=== PATIENT | male | born 1955 | race Caucasian/White ===

== ENCOUNTER 2018-12-13 06:55 | Day surgery (SDC) | payer MEDICARE ==
[2018-12-10 18:13] VITALS: BMI 35.3
[~2018-12-13 06:55] MED LIST: LACTATED RINGERS 1,000 ML IV SCH
[2018-12-13 07:27] VITALS: RESP 16; TEMP 98.4
[2018-12-13 07:29] LABS: Glucose,Whole Blood 137 mg/dL (75-99)
[2018-12-13] MEDS ORDERED: PROPOFOL 10 MG/ML 20 ML VIAL IV ONE (07:40)
[2018-12-13] MEDS ORDERED: ePHEDrine SULFATE/0.9% NACL/PF 50 MG/5 ML SYRINGE IV ONE (07:40)
[2018-12-13] MEDS ORDERED: fentaNYL (PF) 50 MCG/ML 2 ML AMP ONE (07:40)
[2018-12-13] MEDS ORDERED: LIDOCAINE 1% INJ 10MG/ML (20 ML MDV) ONE (07:40)
--- NOTE | 2018-12-13 08:41 | P.PCN ---
Date of Procedure: 12/13/18 Description of Procedure: Brief history: Patient is a pleasant 63-year-old male presents for outpatient EGD and colonoscopy. The patient reports a history of reflux disease for which he takes ranitidine therapy. Reports breakthrough therapies even on the H2 antagonist. He also reports a prior history of colonoscopy 15 years ago. He reports that this was significant only for diverticulosis. No hematochezia or melena reported. No family history of colon cancer. Procedure performed: Esophagogastroduodenoscopy with biopsy Colonoscopy with cold snare polypectomy Estimated blood loss: Minimal. Preoperative diagnosis: GERD, screening colonoscopy Anesthesia: [facility] [place] Procedure: After informed consent was obtained from the patient was brought into the endoscopy unit and IV sedation was administered by anesthesia under continuous monitoring. Initially upper endoscopy was done. The Olympus GF 190 video endoscope was inserted inserted into the mouth and esophagus intubated without any difficulty and was gradually advanced into the stomach and duodenum and carefully examined. The bulb and second part of the duodenum appeared were significant for mild scattered erythema consistent with duodenitis which was biopsied. The scope was then withdrawn into the stomach adequately insufflated with air and upon careful examination the antrum and body, cardia and fundus appeared grossly normal, however erythema and superficial erosions in the antrum and body were seen consistent with moderate gastritis with biopsies taken. The scope was then withdrawn into the esophagus. A small hiatal hernia was noted.The GE junction was located at 37 cm to the incisors. GE junction appeared somewhat irregular suggestive of possible Leiva's esophagus with biopsies taken. Rest of the esophagus appeared normal. Patient tolerated the procedure well. At this time the patient continued to remain sedation. Initial digital rectal examination was normal. Olympus CF 190 video colonoscope was then inserted into the rectum and gradually advanced to the cecum without any difficulty. Careful examination was performed as the scope was gradually being withdrawn. The prep was fair with a large amount of liquid stool with some solid components seen throughout the entire colon. Suctioning was performed to remove liquid component. The cecum, ascending colon, transverse colon, descending colon, sigmoid colon and rectum appeared normal. A flat 11 mm polyp was found in the transverse colon and removed with cold snare in piecemeal fashion. Moderate diverticulosis of the sigmoid and descending colon. Retroflexion was performed in the rectum and no lesions were noted, mild internal hemorrhoids noted . Patient tolerated the procedure well. Impression: 1. Duodenitis, biopsied. Moderate of the antrum and body, biopsied. Irregular GE junction, biopsied. 2. Transverse colon polypectomy, piecemeal resection. Moderate diverticulosis. Mild internal hemorrhoids. Recommendations: Findings of this examination were discussed with the patient. Okay for a high- fiber diet. Await pathology from biopsies. Would recommend follow-up in the GI clinic in the next 1-2 weeks. We'll discuss up titration of medical regimen with possible addition of PPI and follow-up. Repeat colonoscopy in 1 year due to fair prep in piecemeal resection of polyp.
[2018-12-13 09:18] VITALS: BP 120/73; PULSE 62
== END 2018-12-13 09:51 | disposition home or self-care (01) ==
LOC: ORWHC2ENDO 06:55
PROVIDERS: ATTEND Internal Medicine
DX: K21.0 Gastro-esophageal reflux disease with esophagitis (principal); Z12.11 Encounter for screening for malignant neoplasm of colon; K29.50 Unspecified chronic gastritis without bleeding; K29.80 Duodenitis without bleeding; K44.9 Diaphragmatic hernia without obstruction or gangrene; K57.90 Diverticulosis of intestine, part unspecified, without perforation or abscess without bleeding; D12.3 Benign neoplasm of transverse colon; K64.8 Other hemorrhoids; Z88.0 Allergy status to penicillin; Z79.1 Long term (current) use of non-steroidal anti-inflammatories (NSAID); Z79.899 Other long term (current) drug therapy; I10 Essential (primary) hypertension; E11.9 Type 2 diabetes mellitus without complications; E66.9 Obesity, unspecified; Z68.35 Body mass index [BMI] 35.0-35.9, adult; Z79.84 Long term (current) use of oral hypoglycemic drugs
CPT/HCPCS: 43239; 45385; 88305

== ENCOUNTER → 2020-02-19 | Outpatient (CLI) | payer MEDICARE | END | disposition home or self-care (01) | LOC: LABWHC1 09:32 | PROVIDERS: ATTEND Internal Medicine | DX: D89.9 Disorder involving the immune mechanism, unspecified (principal); L40.50 Arthropathic psoriasis, unspecified; M15.9 Polyosteoarthritis, unspecified | CPT/HCPCS: 36415; 86480 ==

== ENCOUNTER 2021-03-02 06:50 | Day surgery (SDC) | payer MEDICARE ==
[2021-02-26 18:08] VITALS: BMI 34.4
[~2021-03-02 06:50] MED LIST changes: +LIDOCAINE 1% (10MG/ML) FOR IV START INTRADERMA PRN
[2021-03-02 07:13] VITALS: TEMP 97.8
[2021-03-02] MEDS ORDERED: LACTATED RINGERS 1,000 ML IV ONE (07:14)
[2021-03-02 07:21] LABS: Glucose,Whole Blood 83 mg/dL (75-99)
[2021-03-02] MEDS ORDERED: MIDAZOLAM 2 MG/2 ML VIAL ONE (07:50)
[2021-03-02] MEDS ORDERED: LIDOCAINE 1% INJ 10MG/ML (20 ML MDV) ONE (07:50)
[2021-03-02] MEDS ORDERED: PROPOFOL 10 MG/ML 20 ML VIAL IV ONE (07:50)
[2021-03-02] MEDS ORDERED: fentaNYL (PF) 50 MCG/ML 2 ML AMP ONE (07:50)
--- NOTE | 2021-03-02 08:21 | P.PCN ---
Date of Procedure: 03/02/21 Description of Procedure: Brief history: Patient is a 65-year-old male presenting for outpatient EGD and colonoscopy for evaluation of symptoms of GERD and a history of colon polyps. Patient denies any family history of colon cancer. Previously reporting only for reflux to controlled on omeprazole therapy. Last colonoscopy with inadequate prep in 2019 and polypectomy at that time. Procedure performed: Esophagogastroduodenoscopy with biopsy Colonoscopy Estimated blood loss: Minimal. Preoperative diagnosis: GERD, history of colon polyps, last colonoscopy 2018 with inadequate prep Anesthesia: MAC Procedure: After informed consent was obtained from the patient was brought into the endoscopy unit and IV sedation was administered by anesthesia under continuous monitoring. Initially upper endoscopy was done. The Olympus GF 190 video endoscope was inserted into the mouth and esophagus intubated without any difficulty and was gradually advanced into the stomach and duodenum and carefully examined. The bulb and second part of the duodenum appeared normal, with biopsies taken. The scope was then withdrawn into the stomach adequately insufflated with air and upon careful examination the antrum and body, cardia and fundus appeared normal, except for some mild scattered erythema in the antrum and body suggestive of mild gastritis biopsy taken. The scope was then withdrawn into the esophagus. The GE junction was located at 40 cm to the incisors. It appeared regular with no erythema erosions or ulcerations, and with lower esophageal biopsies taken. Rest of the esophagus appeared normal. Patient tolerated the procedure well. At this time the patient continued to remain sedation. Initial digital rectal examination was normal. Olympus CF 190 video colonoscope was then inserted into the rectum and gradually advanced to the cecum without any difficulty. Careful examination was performed as the scope was gradually being withdrawn. The prep was excellent. The cecum, ascending colon, transverse colon, descending colon, sigmoid colon and rectum appeared normal, with small and large mouth diverticula noted throughout the colon. Retroflexion was performed in the rectum and no lesions were noted., And moderate internal hemorrhoids were seen Patient tolerated the procedure well. Impression: 1. Mild gastritis. Biopsies of the duodenum, antrum and body and lower esophagus. 2. Mild pandiverticulosis. Internal hemorrhoids. Otherwise normal-appearing colon from rectum to cecum. Recommendations: Findings of this examination were discussed with the patient as well as his family. Okay to resume diet. Okay to resume medications. Await pathology from biopsies. Recommend repeat colonoscopy in 5 years for personal history of colon polyps.
[2021-03-02 08:32] VITALS: RESP 16
[2021-03-02 08:39] VITALS: BP 113/70; PULSE 57
== END 2021-03-02 09:11 | disposition home or self-care (01) ==
LOC: ORWHC2ENDO 06:50
PROVIDERS: ATTEND Internal Medicine
DX: Z12.11 Encounter for screening for malignant neoplasm of colon (principal); K29.50 Unspecified chronic gastritis without bleeding; K57.30 Diverticulosis of large intestine without perforation or abscess without bleeding; K21.00 Gastro-esophageal reflux disease with esophagitis, without bleeding; K64.8 Other hemorrhoids; E03.9 Hypothyroidism, unspecified; Z86.010 Personal history of colon polyps; Z98.890 Other specified postprocedural states; Z87.891 Personal history of nicotine dependence; Z79.890 Hormone replacement therapy; Z79.899 Other long term (current) drug therapy; Z88.0 Allergy status to penicillin
CPT/HCPCS: 88305; 43239; J2250; J2001; J3010; J2704; G0105; 45378

== ENCOUNTER → 2022-04-14 | Outpatient (CLI) | payer MEDICARE ==
--- NOTE | 2022-04-14 09:38 | MR ---
EXAMINATION TYPE: MR brain wo/w con DATE OF EXAM: 04/14/2022 COMPARISON: None HISTORY: DIZZINESS AND GIDDINESS TECHNIQUE: Multiplanar, multisequence images of the brain and brainstem is performed without and with IV contras t, utilizing 11 mL intravenous Gadavist . FINDINGS: Diffusion weighted images demonstrate no evidence of a recent infarct or other diffusion ab normality. There is mild to moderate generalized degenerative change with a slightly greater frontal lobe component. Periventricular and multiple focal areas of abnormal signal are seen within the whit e matter. Midline structures demonstrate normal morphology. The craniocervical junction appears within normal limits. Post contrast images demonstrate no abnormal enhancement. The dural venous sinuses appear pa tent. Changes of chronic sinusitis are noted and the globes are intact. Nasal septal deviation. IMPRESSION: 1. Degenerative and nonspecific white matter changes most mild or minimal white matter ischemia. 2. Mild chronic sinusitis.
== END | disposition home or self-care (01) ==
LOC: RADMRIMAIN 08:16
PROVIDERS: ATTEND Family Medicine
DX: R42 Dizziness and giddiness (principal)
CPT/HCPCS: 70553; A9585

== ENCOUNTER → 2022-10-12 | Outpatient (CLI) | payer MEDICARE ==
--- NOTE | 2022-10-12 14:52 | BD ---
EXAMINATION TYPE: Axial Bone Density DATE OF EXAM: 10/12/2022 COMPARISON: NONE CLINICAL HISTORY: 67 years year old Male. ICD-10 CODE: M47.819SPONDYLOSIS WITHOUT MYELOPATHY OR RADI CULO Height: 5 FT 11 IN Weight: 241 FRAX RISK QUESTIONS: Alcohol (3 or more units per day): NO Family History (Parent hip fracture): NO Glucocorticoids (More than 3mos): YES (Ex: prednisone, prednisolone, methylprednisolone, dexamethasone, and hydrocortisone). History of Fracture in Adulthood: NO Secondary Osteoporosis: 1. Type 1 Diabetes:TYPE 2 2. Hyperthyroidism: NO 3. 4. Malnutrition: NO 5. Chronic liver disease: NO Rheumatoid Arthritis: NO Current Tobacco Use: FORMER RISK FACTORS HISTORY OF: Surgery to Spine/Hip(right/left)/Wrist (right/left): NO Family History of Osteoporosis: NO Active: YES Diet low in dairy products/other sources of calcium: NO Lost more than 2 inches in height since high school: NO Frequent falls: NO Poor Health: GOOD Hyperparathyroidism: NO Adrenal Insufficiency: NO MEDICATIONS: Additional Medications: GABAPENTIN, METOPROLOL, SYNJARDY PROSTATE MEDS, TYLENOL, PM, METHTREXTE,INFUS ION EVERY EIGHT WEEKS FOR [place]CGOWAN TIC ARTHRITIS, Additional History: EXAM MEASUREMENTS: Bone mineral densitometry was performed using the [employer] System. Bone mineral density as measured about the Lumbar spine is: ----- L1-L4(G/cm2): 1.441 T Score Values are as follows: ----- L1: 1.7 ----- L2: 1.7 ----- L3: 2.6 ----- L4: 2.5 ----- L1-L4: 2.2 BASELINE Bone mineral density about the R hip (g/cm2): 0.945 Bone mineral density about the L hip (g/cm2): 0.949 T Score values are as follows: -----R Neck: -0.7 -----L Neck: -0.6 -----R Total: 0.5 -----L Total: 0.7 BASELINE FRAX%s: The graph provided illustrates a 5.1 % chance for a major osteoporotic fx and a 0.7 % chance for the hips probability for fx in 10 years time. IMPRESSION: Normal (Values between +1 and -1 indicate normal bone mass). Consider repeating this study in 5 year s or sooner if there is some new clinical indication. NOTE: T-SCORE=SD OF THE YOUNG ADULT MEAN.
== END | disposition home or self-care (01) ==
LOC: RADBDWWP 12:36
PROVIDERS: ATTEND Internal Medicine Rheumatology
DX: M47.819 Spondylosis without myelopathy or radiculopathy, site unspecified (principal); E10.9 Type 1 diabetes mellitus without complications
CPT/HCPCS: 77080

== ENCOUNTER 2023-03-18 16:34 | Emergency (ER) | payer MEDICARE ==
[2023-03-18] MEDS ORDERED: LIDOCAINE 5% PATCH TOPICAL SCH (17:15)
--- NOTE | 2023-03-18 17:28 | ED ---
Fall HPI - General Chief Complaint: Fall Stated Complaint: Fall,Back Pain Time Seen by Provider: 03/18/23 16:57 Source: patient, family Mode of arrival: ambulatory - History of Present Illness Initial Comments: 67-year-old male presenting for evaluation after trip and fall that occurred at 1300 today. Patient tripped over a concrete step in his garage. He states that as he was falling forward he went to grab a lawn chair which then slipped out from underneath him. He denies hitting his head. No loss of consciousness or blood thinners. He is complaining of mid to low back pain. No loss of bowel or bladder control or saddle paresthesia. No headache, neck pain, dizziness, nausea, vomiting, numbness, tingling, weakness, chest pain, difficulty breathing, abdominal pain. - Related Data Home Medications Medication Instructions Recorded Confirmed Acetaminophen/Diphenhydramine 2 each PO HS 12/10/18 02/26/21 [Tylenol PM Extra Strength] Metoprolol Tartrate [Lopressor] 100 mg PO BID 12/10/18 02/26/21 Alfuzosin HCl [Uroxatral ER] 10 mg PO HS 02/26/21 02/26/21 Atorvastatin [Lipitor] 10 mg PO HS 02/26/21 02/26/21 Cetirizine HCl [Zyrtec ODT] 10 mg PO DAILY 02/26/21 02/26/21 Doxazosin Mesylate 1 mg PO HS 02/26/21 02/26/21 Empagliflozin/Metformin HCl 2 each PO DAILY 02/26/21 02/26/21 [Synjardy 12.5-1,000 mg Tablet] Folic Acid 1 mg PO HS 02/26/21 02/26/21 Gabapentin 600 mg PO TID 02/26/21 02/26/21 Levothyroxine Sodium 112 mcg PO DAILY 02/26/21 02/26/21 Omeprazole 20 mg PO DAILY 02/26/21 02/26/21 metHOTREXate sodium [Methotrexate] 20 mg PO TU 02/26/21 02/26/21 Allergies Allergy/AdvReac Type Severity Reaction Status Date / Time Penicillins Allergy Unknown Verified 02/26/21 17:56 Childhood Review of Systems ROS Statement: Those systems with pertinent positive or pertinent negative responses have been documented in the HPI. ROS Other: All systems not noted in ROS Statement are negative. Past Medical History Past Medical History: Diabetes Mellitus, GERD/Reflux, Hyperlipidemia, Hypertension, Prostate Disorder, Thyroid Disorder Additional Past Medical History / Comment(s): POLYRHEUMATIC MYALGIA. BPH. POSS GERD. History of Any Multi-Drug Resistant Organisms: None Reported Past Surgical History: Hernia Repair Additional Past Surgical History / Comment(s): COLONOSCOPY Past Anesthesia/Blood Transfusion Reactions: No Reported Reaction Past Psychological History: No Psychological Hx Reported Smoking Status: Former smoker - Past Family History Mother Family Medical History: Cancer Additional Family Medical History / Comment(s): SKIN - FACE, BRAIN CA Father Family Medical History: Cancer Additional Family Medical History / Comment(s): LUNG CA General Exam Limitations: no limitations General appearance: alert, in no apparent distress Head exam: Present: atraumatic, normocephalic, normal inspection Eye exam: Present: normal appearance, PERRL, EOMI. Absent: scleral icterus, periorbital swelling Pupils: Present: normal accommodation Neck exam: Present: normal inspection, full ROM Respiratory exam: Present: normal lung sounds bilaterally. Absent: respiratory distress, wheezes, rales, rhonchi, stridor Cardiovascular Exam: Present: regular rate, normal rhythm, normal heart sounds. Absent: systolic murmur, diastolic murmur, rubs, gallop, clicks Extremities exam: Present: normal inspection, full ROM Back exam: Present: normal inspection. Absent: vertebral tenderness Neurological exam: Present: alert, oriented X3, CN II-XII intact Expanded Patient oriented to: Present: person, place, time Speech: Present: fluid speech Cranial nerves: EOM's Intact: Normal Motor strength exam: RUE: 5, LUE: 5, RLE: 5, LLE: 5 Eye Response: (4) open spontaneously Motor Response: (6) obeys commands Verbal Response: (5) oriented Jacqui Total: 15 Psychiatric exam: Present: normal affect, normal mood Skin exam: Present: warm, dry, normal color, abrasion (Abrasions of the bilateral knees). Absent: rash Course Vital Signs 03/18/23 03/18/23 16:46 18:37 Temperature 98.3 F 98.1 F Pulse Rate 69 74 Respiratory 20 16 Rate Blood Pressure 147/78 141/96 O2 Sat by Pulse 97 96 Oximetry Medical Decision Making - Medical Decision Making Was pt. sent in by a medical professional or institution ([facility], [facility], urgent care, hospital, or snf...) When possible be specific @ -No Did you speak to anyone other than the patient for history (EMS, parent, family, police, friend...)? What history was obtained from this source @ -No Did you review nursing and triage notes (agree or disagree)? Why? @ -I reviewed and agree with nursing and triage notes Were old charts reviewed (outside hosp., previous admission, EMS record, old EKG, old radiological studies, urgent care reports/EKG's, snf records)? Report findings @ -No old charts were reviewed Differential Diagnosis (chest pain, altered mental status, abdominal pain women, abdominal pain men, vaginal bleeding, weakness, fever, dyspnea, syncope, headache, dizziness, GI bleed, back pain, seizure, CVA, palpatations, mental health, musculoskeletal)? @ - MDM Differential Back Pain: Strain, zoster, cauda equina syndrome, epidural abscess, vertebral osteomyelitis, discitis, fracture, subluxation, disc herniation, DJD, spinal laura nosis, dissection, AAA, pancreatitis, peptic ulcer disease, pyelonephritis, kidney stone this is not meant to be an all-inclusive list. EKG interpreted by me (3pts min.). @ -As above X-rays interpreted by me (1pt min.). @ -No acute process on x-ray of the thoracic and lumbar spine CT interpreted by me (1pt min.). @ -Negative CT of the brain and cervical spine U/S interpreted by me (1pt. min.). @ -None done What testing was considered but not performed or refused? (CT, X-rays, U/S, labs)? Why? @ -None What meds were considered but not given or refused? Why? @ -None Did you discuss the management of the patient with other professionals (professionals i.e. [facility], [facility], lab, RT, psych nurse, social service technician, roving inspector, teacher, property officer, onsite case manager)? Give summary @ -No Was smoking cessation discussed for >3mins.? @ -No Was critical care preformed (if so, how long)? @ -No Were there social determinants of health that impacted care today? How? (Homelessness, low income, unemployed, alcoholism, drug addiction, transportation, low edu. Level, literacy, decrease access to med. care, snf, rehab)? @ -No Was there de-escalation of care discussed even if they declined (Discuss DNR or withdrawal of care, Hospice)? DNR status @ -No What co-morbidities impacted this encounter? (DM, HTN, Smoking, COPD, CAD, Cancer, CVA, ARF, Chemo, Hep., AIDS, mental health diagnosis, sleep apnea, morbid obesity)? @ -None Was patient admitted / discharged? Hospital course, mention meds given and route, prescriptions, significant lab abnormalities, going to OR and other pertinent info. @ -67-year-old male presenting with chief complaint of back pain after a fall today. No loss of consciousness or blood thinners. No red flag symptoms. Negative CT of the brain and cervical spine. No acute process on x-rays of the thoracic and lumbar spine. Patient reports improvement in symptoms after lidocaine patch. Follow-up with PCP. Report back to ER with any new or worsening symptoms. Discussed return parameters and answered all questions. Patient conveyed verbal understanding and agreed to the plan. I discussed this case in detail with my attending Dr. Crawford Undiagnosed new problem with uncertain prognosis? @ -No Drug Therapy requiring intensive monitoring for toxicity (Heparin, Nitro, Insulin, Cardizem)? @ -No Were any procedures done? @ -No Diagnosis/symptom? @ -Back strain Acute, or Chronic, or Acute on Chronic? @ -Acute Uncomplicated (without systemic symptoms) or Complicated (systemic symptoms)? @ -uncomplicated Side effects of treatment? @ -No Exacerbation, Progression, or Severe Exacerbation? @ -No Poses a threat to life or bodily function? How? (Chest pain, [place], [place], pneumonia, PE, COPD, DKA, ARF, appy, cholecystitis, CVA, Diverticulitis, Homicidal, Suicidal, threat to staff... and all critical care pts) @ -No Disposition Clinical Impression: Fall, Lumbar strain Disposition: HOME SELF-CARE Condition: Good Instructions (If sedation given, give patient instructions): Acute Low Back Pain (ED) Additional Instructions: Follow-up with PCP. Report back to ER with any new or worsening symptoms. Take Motrin and Tylenol as needed for pain control. Is patient prescribed a controlled substance at d/c from ED?: No Referrals: Sarah Jacobsen MD [Primary Care Provider] - 1-2 days Time of Disposition: 18:10
--- NOTE | 2023-03-18 17:37 | XR ---
EXAMINATION TYPE: XR lumbar spine 2 or 3V DATE OF EXAM: 03/18/2023 COMPARISON: None HISTORY: Fall, pain TECHNIQUE: 3 view lumbar spine FINDINGS: There are 5 lumbar-type vertebral bodies. Pedicles are intact. Some disc space narrowing is present L5-S1. Some posterior disc space narrowing is present L2-3. Remaining disc heights are prese rved. Vertebral body heights are preserved. Spondylosis is present. IMPRESSION: 1. Degenerative disc change L5-S1 posteriorly L2-3. 2. Spondylosis
--- NOTE | 2023-03-18 17:38 | XR ---
EXAMINATION TYPE: XR thoracic spine complete DATE OF EXAM: 03/18/2023 COMPARISON: None HISTORY: Pain following fall TECHNIQUE: 3 view lumbar spine FINDINGS: There appear to be 12 thoracic type vertebral bodies. Pedicles are intact. Spondylosis is p resent. Disc heights appear preserved alignment is normal. IMPRESSION: 1. Spondylosis
--- NOTE | 2023-03-18 17:58 | CT ---
EXAMINATION TYPE: CT brain lili wo con DATE OF EXAM: 03/18/2023 COMPARISON: None HISTORY: pain after fall CT DLP: 1763.6 mGycm, Automated exposure control for dose reduction was used. CONTRAST: Patient injected with 0 mL of Isovue 300. CT of the brain is performed utilizing 3 mm thick sections through the posterior fossa and 3 mm thick sections through the remaining calvarium. Study is performed within 24 hours of arrival to the hospital. No abnormal hyperdensity is present to suggest an acute intracranial hemorrhage. No mass lesion is evident. No acute infarcts are evident. There is mild hypodensity within the deep white matter which is nonsp ecific. Consider chronic white matter ischemic changes. Ventricles and sulci are appropriate for the patient age. Paranasal sinuses and mastoid air cells within the [id number] are clear. IMPRESSIONS: 1. No acute intracranial process. Follow-up MRI can be performed as clinically indicated. 2. Mild Chronic appearing deep white matter ischemic type changes CT cervical spine. COMPARISON: None CT of the cervical spine is performed in the axial plane at 2 mm thick sections. Reconstructed image s in the coronal, and sagittal plane are reviewed on the computer. No acute fractures are evident. Vertebral body alignment is normal. Disc space narrowing is present at C6-7. Anterior vertebral body spurring is present C6-7. Vertebral body heights are preserved. No spinal canal stenosis is evident. Minimal narrowing of the right C2-3 foramen is present. Severe left foraminal stenosis present C3-4 w ith more moderate right foramina narrowing due to uncovertebral hypertrophy. Minimal bilateral uncove rtebral joint hypertrophy with minimal foraminal narrowing seen 4 5 bilaterally. Mild narrowing of th e left C5-6 foramen is present. More moderate bilateral foraminal narrowing is present C6-7. IMPRESSIONS: 1. No acute osseous abnormality. 2. Degenerative disc changes C6-7. 3. Uncovertebral joint hypertrophy with minimal to mild foraminal narrowing discussed above.
[2023-03-18 18:40] VITALS: BP 141/96; PULSE 74; RESP 16; TEMP 98.1
== END 2023-03-18 18:40 | disposition home or self-care (01) ==
LOC: EC 16:34
DX: S39.012A Strain of muscle, fascia and tendon of lower back, initial encounter (principal); S80.212A Abrasion, left knee, initial encounter; S80.211A Abrasion, right knee, initial encounter; E11.9 Type 2 diabetes mellitus without complications; I10 Essential (primary) hypertension; E78.5 Hyperlipidemia, unspecified; K21.9 Gastro-esophageal reflux disease without esophagitis; Z79.84 Long term (current) use of oral hypoglycemic drugs; Z79.890 Hormone replacement therapy; Z79.899 Other long term (current) drug therapy; Z87.891 Personal history of nicotine dependence; Z88.0 Allergy status to penicillin; W01.0XXA Fall on same level from slipping, tripping and stumbling without subsequent striking against object, initial encounter; Y92.59 Other trade areas as the place of occurrence of the external cause
CPT/HCPCS: 70450; 72072; 72100; 72125

== ENCOUNTER → 2024-05-03 | Outpatient (CLI) | payer MEDICARE | END | disposition home or self-care (01) | LOC: LABPRL 10:31 | PROVIDERS: ATTEND Family Medicine | DX: M47.819 Spondylosis without myelopathy or radiculopathy, site unspecified (principal) | CPT/HCPCS: 80076; 82565; 85025; 86140 ==